=== PATIENT | female | born 1945 | race Caucasian/White ===

== ENCOUNTER 2017-05-27 13:31 | Outpatient (CLI) | payer MEDICARE ==
[2017-05-27] MEDS ORDERED: Iopamidol 370 76% 100 ML VIAL ONE (16:01)
--- NOTE | 2017-05-27 16:26 | CT ---
EXAM: CHEST CT WITH CONTRAST 05/27/17 HISTORY: Breast cancer. Left breast mastectomy. Patient has been treated with chemotherapy and mastectomy. COMPARISON: 11/03/12. CORRELATION: PET imaging 07/03/13. TECHNIQUE: Postcontrast chest CT is performed in the axial plane. Coronal reformatted images are submitted for interpretation. FINDINGS: Thyroid gland is unremarkable. No mediastinal mass, lymphadenopathy or hematoma. Heat size is within normal limits. No significant pericardial fluid. Grossly, the central pulmonary arteries are patent and unremarkable. Thoracic aor ta and upper abdominal aorta have a normal caliber. No periaortic fat stranding. Hypodensities involving the liver are redemonstrated. Multiple hepatic cysts are favored. The remain ing upper solid organs are unremarkable. Trachea and central bronchi are patent. Minimal bullous change in both lung apices. There are no kenn picious masses in the left or right lung. Linear densities in the left lower lobe with minimal asso ciated ground glass opacification may represent atelectatic change. No pleural effusion or pneumotho rax. No evidence of axillary lymphadenopathy. Left mastectomy changes are noted. IMPRESSION: No CT evidence of metastatic disease. POS: [facility]
== END 2017-05-27 13:32 | disposition home or self-care (01) ==
LOC: CT 13:31
PROVIDERS: ATTEND Internal Medicine Hematology & Oncology
DX: C50.919 Malignant neoplasm of unspecified site of unspecified female breast (principal)
CPT/HCPCS: 71260; 80048; 82306

== ENCOUNTER 2017-11-19 10:10 | Outpatient (CLI) | payer MEDICARE | END 2017-11-19 10:11 | disposition home or self-care (01) | LOC: BICMAMMO 10:10 | PROVIDERS: ATTEND Surgery | DX: C50.919 Malignant neoplasm of unspecified site of unspecified female breast (principal); Z80.3 Family history of malignant neoplasm of breast | CPT/HCPCS: 77065; G0279 ==